=== PATIENT | female | born 1965 | race Hispanic/Latino ===

== ENCOUNTER 2020-06-02 08:15 | Day surgery (SDC) | payer OTHER ==
--- NOTE | 2020-05-31 13:00 | NUR ---
PHONE PRE ADMIT COMPLETE AT THIS TIME, PT WORKS FOR [employer] IN [place] AND WAS UNABLE TO TALK AT 11AM TODAY, BUT DID CALL AT THIS TIME TO COMPLETE THE PRE-ADMIT PROCESS. PT HAS NOT COMPLETED LABS AT THIS TIME. ORDER SENT TO [facility] AND WAS SET UP AT THE HOSPITAL IF [facility] WAS CLOSED WHEN PATIENT WAS OFF WORK. PT UNDERSTOOD ALL INSTRUCTIONS AT THIS TIME.
--- NOTE | 2020-06-01 09:03 | NUR ---
PT COMPLETED PHONE PRE-ADMIT ON 05-31-20 AND PT WAS INSTRUCTED TO OBTAIN LABS EITHER AT THE [facility]IN [facility] OF [facility] OR COME TO THE HOSPITAL. OF THIS AM PT HAS NOT OBTAIN HER LABS AT EITHER [facility]. PHONE CALL TO PT LEFT MESSAGE.
[~2020-06-02] VITALS: Ht 152.4 cm; Wt 61.4 kg
[~2020-06-02 08:15] MED LIST: VENTOLIN HFA18 GM INH
--- NOTE | 2020-06-02 11:03 | NUR ---
06/02/20 1103 Lillian Merino 1056 PATIENT ARRIVES TO PACU UNRESPONSIVE TO PAIN. REQUIRES JAW THRUST TO MAINTAIN PATENT AIRWAY. RESP EVEN AND UNLABORED, MASK AT 6 LITERS.
--- NOTE | 2020-06-02 11:35 | NUR ---
PATIENT BACK TO ROOM FROM PACU, BEDSIDE REPORT FROM LATASHA CAPPS. PATIENT APPEARS DROWSY, OPENS EYES TO VERBAL STIMULI. VSS. DRESSING TO LEFT AXILLA C/D/I WITH SUTURES, GAUZE AND TAPE. PATIENT REPORTS NO PAIN OR NAUSEA.
--- NOTE | 2020-06-02 12:53 | NUR ---
1240: PATIENT AWAKENED FOR VS CHECK. DENIES PAIN. TOLERATED CRACKERS AND APPLESAUCE AND WATER. LEFT AXILLA DRESSING CDI. ICE PACK TO LEFT ARMPIT. NO NEEDS AT THIS TIME. CALL LIGHT WITHIN REACH.
[2020-06-02] MEDS ORDERED: HYDROCODON-ACE1 EAC8 PO (13:08)
--- NOTE | 2020-06-02 15:16 | NUR ---
1345: PATIENT AWAKENED FOR VS CHECK. PATIENT DROWSY, BUT AWAKENS EASILY TO VOICE. 1405: PATIENT ASSISTED OOB. PATIENT DRESSED INDEPENDENTLY. DISCHARGE INSTRUCTIONS GIVEN TO PATIENT. 1430: IV DC'D WNL. TIP INTACT. DRESSING APPLIED. PATIENT DISCHARGED TO HOME WITH DAUGHTER VIA WHEELCHAIR.
--- NOTE | 2020-06-06 08:57 | OR ---
[facility] [address] [place], [place] [address] Signed DATE OF OPERATION: 06/02/2020 SURGEON: Tremayne Anaya MD PREOPERATIVE DIAGNOSIS: Posterior subcutaneous left upper extremity mass (probably 6 x 8 cm). POSTOPERATIVE DIAGNOSIS: Posterior subcutaneous left upper extremity mass (probably 6 x 8 cm). PROCEDURE: Excision of left upper extremity posterior subcutaneous mass. ESTIMATED BLOOD LOSS: None. INDICATIONS: Derrell is a 54-year-old female, who was asked to see me for an enlarging subcutaneous mass in the posterior aspect of her left arm. It is almost in her axilla. She has had it for a number years. She said it started out very small, but it has increased to the size of at least an extra-large egg. 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 This mass underneath her arm has become very problematic as it rubs between the arm and the axilla. It is starting to inhibit her ability to work. Her primary care provider asked her to see me to have it removed. She told me it has never been infected or drained to her knowledge. In the office, I explained to Derrell I could use a linear incision over that mass and excised it completely for definitive diagnosis and treatment. She understands this will be a day surgery. There is risk to that surgery including, but not limited to bleeding, infection, scarring, change in contour of the skin as well as recurrent masses in the same or other locations. She had expressed understanding and wished to proceed. DESCRIPTION OF PROCEDURE: I met with Derrell in our preop area. We both agreed on the mass and marked it appropriately. It is quite obvious underneath her left arm. After this, she was taken in the operating room and placed in the supine position under general LMA anesthesia. She was given preoperative antibiotics along with subcutaneous heparin. SCDs were utilized. She was then prepped and draped in the usual sterile fashion. A radial incision was made over the lesion and carried down around the lesion bluntly and with the cautery. A large lipomatous mass was thus excised. The overlying skin was extremely thin. We had to cut back at least a cm skin on either side until we Electronically Signed By: TREMAYNE ANAYA MD 06/06/20 0857 PATIENT NAME: DERRELL VAZQUEZ OPERATIVE REPORT DATE OF : 69 REPORT #: [id number] PHYSICIAN: TREMAYNE ANAYA MD PCP: COLUMBA PAVON PA-C REPORT IS CONFIDENTIAL AND NOT TO BE RELEASED WITHOUT AUTHORIZATION [facility] [address], [place] [address] Signed approached thicker healthier skin and healthy subcutaneous fat. We then closed the dermis with interrupted 3-0 subcuticular Monocryl sutures. That eliminated almost all of the space. We then reapproximated the skin edges with a running 5-0 fast absorbing plain gut suture. Dry gauze and tape were then applied. We had injected local anesthetic into the wound. After this, she was weaned from her anesthesia, extubated in the OR and taken to the recovery room in stable condition. Tremayne Anaya MD ALB/MODL /[id number] cc: MD Columba Burton PA Copies: TREMAYNE ANAYA MD ~ Electronically Signed By: TREMAYNE ANAYA MD 06/06/20 0857 PATIENT NAME: DERRELL VAZQUEZ OPERATIVE REPORT DATE OF : 69 REPORT #: [id number] PHYSICIAN: TREMAYNE ANAYA MD PCP: COLUMBA PAVON PA-C REPORT IS CONFIDENTIAL AND NOT TO BE RELEASED WITHOUT AUTHORIZATION
--- NOTE | 2020-06-06 12:15 | PATH ---
[facility] [address] [place], [place] [address] Signed SPECIMEN(S): A SUBCUTANEOUS LEFT ARM MASS SPECIMEN SOURCE: A. SUBCUTANEOUS LEFT ARM MASS CLINICAL HISTORY: Excision of subcutaneous mass left arm. FINAL PATHOLOGIC DIAGNOSIS: Soft tissue, subcutaneous mass left arm, excision: - Lipoma. NAL:cml:C2NR MICROSCOPIC EXAMINATION: Histologic sections of all submitted blocks are examined by light microscopy. These findings, together with the gross examination, support the pathologic diagnosis. GROSS DESCRIPTION: The specimen, labeled `Derrell Grier, and designated on the requisition "subcutaneous mass left arm," is received in formalin and consists of a 48 gram portion of yellow-zapien adipose tissue that is 7.6 x 5.5 x 2.8 cm. The specimen is partially surfaced by a transparent membranous tissue. The tissue is inked black and serially sectioned to reveal a pale yellow homogeneous cut surface. No areas of hemorrhage or necrosis are grossly identified. Automatic [employer] sections are submitted in cassette (A1-A5). FB (under the direct supervision of a pathologist) The Gross Description was prepared using a voice recognition system. The report was reviewed for accuracy; however, sound-alike word errors, addition and/or deletions may occur. If there is any question about this report, please contact Client Services. PERFORMING LABORATORY: The technical component was performed by [facility], [address] [place] [id number] (Youth Services Specialist: Ashley Merrill MD; CLIA# [id number]). Professional interpretation was performed by [facility], [address] [address] (CLIA# [id number]). Diagnostician: Renay Soria MD PATIENT NAME: DERRELL VAZQUEZ PATHOLOGY DATE OF : 69 REPORT #: [id number] PHYSICIAN: [facility] PCP: LETY PAVON PA-C REPORT IS CONFIDENTIAL AND NOT TO BE RELEASED WITHOUT AUTHORIZATION [facility] [address] [place] [id number] Signed Pathologist Electronically Signed 06/06/2020 Copies: ~ PATIENT NAME: DERRELL VAZQUEZ PATHOLOGY DATE OF : 69 REPORT #: [id number] PHYSICIAN: [facility] PCP: LETY PAVON PA-C REPORT IS CONFIDENTIAL AND NOT TO BE RELEASED WITHOUT AUTHORIZATION
== END 2020-06-02 14:30 | disposition home or self-care (01) ==
LOC: DS 08:15
PROVIDERS: ATTEND Colon & Rectal Surgery
PROC: 0HBCXZZ Excision of Left Upper Arm Skin, External Approach (ICD-10-PCS; principal; 2020-06-02 09:30)
DX: D17.22 Benign lipomatous neoplasm of skin and subcutaneous tissue of left arm (principal); F32.9 Major depressive disorder, single episode, unspecified; F41.9 Anxiety disorder, unspecified; K21.9 Gastro-esophageal reflux disease without esophagitis; Z80.1 Family history of malignant neoplasm of trachea, bronchus and lung
CPT/HCPCS: 00400; 88305; J0690; J1100; J1644; J1885; J2250; J2405; J2704; J2765; J3010; J7121